=== PATIENT | female | born 1955 | race Caucasian/White ===

== ENCOUNTER 2019-12-12 18:23 | Emergency (ER) | payer OTHER ==
[~2019-12-12] VITALS: Ht 152.4 cm; Wt 45.4 kg
[2019-12-12 21:21] LABS: Basophils # (auto) 0 10 ^3/uL (0-0.2); Basophils % (auto) 0.2 % (0.0-2.0); Eosinophils # (auto) 0 10 ^3/uL (0-0.8); Hematocrit 40.5 % (36.0-46.0); Hemoglobin 13.6 g/dL (12.2-16.2); Lymphocytes # (auto) 1.1 10 ^3/uL (0.4-5.4); Mean Corpuscular Hemoglobin 31.3 pg (28.0-32.0); Mean Corpuscular Hgb Conc. 33.6 g/dL (32.0-36.0); Mean Corpuscular Volume 93.4 fL (80.0-100.0); Monocytes # (auto) 0.2 10 ^3/uL (0-1.3); Neutrophils # (auto) 7.4 10 ^3/uL (1.6-8.6); Neutrophils % (auto) 84.8 % (37.0-80.0); Platelet Count (auto) 282 10^3/uL (140-450); Red Blood Cells 4.34 10^6/uL (4.0-5.20); Red Cell Distribution Width 12.7 % (11.8-14.3); White Blood Cell 8.8 10^3/uL (4.4-10.8)
[2019-12-12 21:36] LABS: INR 1.01 (0.9-1.15); Partial Thromboplastin Time 23.7 sec (23.64-32.05); Urine Bacteria NONE SEEN /hpf (None Seen); Urine Blood Negative /uL (Negative); Urine Hyaline Cast FEW /lpf (0 - 2); Urine Specific Gravity 1.006 (1.001-1.035); Urine WBC <1 /hpf (0 - 5)
[2019-12-12 21:37] LABS: Albumin 4.3 g/dL (3.4-5.0); Anion Gap 11 (5-15); Blood Urea Nitrogen 12 mg/dL (7-18); Calcium 8.7 mg/dL (8.5-10.1); Carbon Dioxide 22 mmol/L (21-32); Chloride 104 mmol/L (98-107); Glucose 105 mg/dL (74-106); Potassium 3.6 mmol/L (3.5-5.1); Sodium 137 mmol/L (136-145)
[2019-12-12 21:44] LABS: Alanine Aminotransferase 27 U/L (13-56); Alkaline Phosphatase 60 U/L (45-117); Amphetamine Screen, Urine NEGATIVE (NEGATIVE); Aspartate Aminotransferase 24 U/L (15-37); BUN/Creatinine Ratio 17.6; Barbiturate Scree,Urine NEGATIVE (NEGATIVE); Benzodiazephine Screen, Urine NEGATIVE (NEGATIVE); Bilirubin, Total 0.6 mg/dL (0.2-1.0); Cannabinoid Screen, Urine NEGATIVE (NEGATIVE); Cocaine Screen, Urine NEGATIVE (NEGATIVE); GFR African American 112 mL/min; GFR Non-African American 92 mL/min; Opiate Scree,Urine NEGATIVE (NEGATIVE); Phencyclidine Screen, Urine NEGATIVE (NEGATIVE); Total Protein 8.5 g/dL (6.4-8.2)
[2019-12-12] MEDS ORDERED: FOLIC ACID 1 MG, MULTIPLE VITAMIN 10 ML, MAGNESIUM SULF SDV 50% 8 MEQ, THIAMINE INJ 100... INJ STA ×5 (23:02)
[2019-12-12 23:30] VITALS: BP 102/69
[2019-12-12] MEDS ORDERED: MVI in SODIUM CHLORIDE 0.9% 1,010 ML ONE (23:40)
[2019-12-12] MEDS ORDERED: THIAMINE 100mg/ml INJ (200mg/2ml VIAL) ONE (23:40)
[2019-12-12] MEDS ORDERED: MULTIPLE VITAMIN 10 ML, THIAMINE INJ 100 MG in SODIUM CHLORIDE 0.9% 1,000 ML INJ ONE (23:45)
== END 2019-12-13 01:16 | disposition home or self-care (01) ==
LOC: EDBD 18:23 → ER 18:29
DX: R41.0 Disorientation, unspecified (principal); F10.920 Alcohol use, unspecified with intoxication, uncomplicated; G92 Toxic encephalopathy
CPT/HCPCS: 36415; 70450; 71045; 80053; 80307; 80320; 81001; 84484; 85025; 85610; 85730; 99285; J3411; J3475; J7030; 96365; 96366